=== PATIENT | female | born 2000 | race Caucasian/White ===

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

== ENCOUNTER 2020-06-15 18:32 | Emergency (ER) | payer OTHER ==
[~2020-06-15] VITALS: Ht 157.5 cm; Wt 97.1 kg
[2020-06-15 18:53] VITALS: BP 100/72; Ht 157.5 cm; Wt 97.1 kg
[2020-06-15 19:37] LABS: microscopic required? NO
[2020-06-15 19:48] LABS: BASOPHIL % 0.6 % (0.2-1.3); PLATELET COUNT 183 x10^3mcL (179-408); RED CELL DISTRIBUTION WIDTH 13.5 % (12.3-17.7)
[2020-06-15 19:50] LABS: urine erythrocyte NEGATIVE (NEGATIVE)
[2020-06-15 19:56] LABS: CALCIUM 9.1 mg/dL (8.5-10.1); CARBON DIOXIDE 27.5 mmol/L (21-32); CHLORIDE SERUM 105 mmol/L (98-107); CREATININE SERUM 0.7 mg/dL (0.6-1.0); GFR1 > 60 mL/min; GLUCOSE SERUM 90 mg/dL (74-106); POTASSIUM SERUM 4.1 mmol/L (3.5-5.1); SODIUM SERUM 141 mmol/L (136-145)
[2020-06-15 20:01] LABS: ALBUMIN 4.1 g/dL (3.4-5.0); ALKALINE PHOSPHATASE 46 U/L (46-116); ALT/SGPT 19 U/L (14-59); AST/SGOT 13 U/L (15-37); BILIRUBIN TOTAL 0.3 mg/dL (0.20-1.00); TOTAL PROTEIN, SERUM 7.1 g/dL (6.4-8.2)
== END 2020-06-15 21:31 | disposition home or self-care (01) ==
LOC: ED 18:32
PROVIDERS: Student in an Organized Health Care Education/Training Program
DX: R10.31 Right lower quadrant pain (principal); J45.909 Unspecified asthma, uncomplicated
CPT/HCPCS: J1885